=== PATIENT | male | born 1960 | race Caucasian/White ===

== ENCOUNTER 2021-11-09 06:19 | Emergency (ER) | payer BC ==
[~2021-11-09] VITALS: Ht 170.2 cm; Wt 72.7 kg
[2021-11-09 06:20] VITALS: BP_DIAS 69
[2021-11-09] MEDS ORDERED: MELO15TA28 PO (06:31)
[2021-11-09] MEDS ORDERED: TIZA4CAP PO (06:31)
[2021-11-09] MEDS ORDERED: MORPHINE 10 MG/ML 1ML VIAL IM ONE (07:20)
[2021-11-09] MEDS ORDERED: LIDOCAINE 5% (LIDODERM) PATCH TD ONE (07:20)
[2021-11-09] MEDS ORDERED: diazePAM 10 MG TAB PO ONE (07:20)
[2021-11-09] MEDS ORDERED: methylPREDNISolone 125MG 2ML VIAL IM ONE (08:55)
[2021-11-09] MEDS ORDERED: METH-1165 PO (09:00)
[2021-11-09] MEDS ORDERED: ASPE4PAD TOP (09:00)
[2021-11-09] MEDS ORDERED: TRAM50TA2 PO (09:00)
[2021-11-09] MEDS ORDERED: PRED20TA PO (09:00)
[2021-11-09 09:14] VITALS: BP_SYST 139
[2021-11-09] MEDS ORDERED: **NOTE PATIENT COMMENT** MISC XX ONE (21:00)
[2021-11-10] MEDS ORDERED: OXYC7.5T3 PO ×2 (22:20→22:28)
== END 2021-11-09 09:34 | disposition home or self-care (01) ==
LOC: M ED 06:19
DX: M51.27 Other intervertebral disc displacement, lumbosacral region (principal); M19.90 Unspecified osteoarthritis, unspecified site; Z87.442 Personal history of urinary calculi; Z88.1 Allergy status to other antibiotic agents; Z88.5 Allergy status to narcotic agent; F17.200 Nicotine dependence, unspecified, uncomplicated
CPT/HCPCS: 72131; 93971; 96372; 99283; J2270; J2930

== ENCOUNTER 2021-11-10 11:20 | Emergency (ER) | payer BC ==
[~2021-11-10] VITALS: Ht 170.2 cm; Wt 72.7 kg
[~2021-11-10 11:20] MED LIST: ASPE4PAD TOP; MELO15TA28 PO; METH-1165 PO; PRED20TA PO; TIZA4CAP PO; TRAM50TA2 PO
[2021-11-10] MEDS: HYDROMORPHONE HCL 0.5 MG/ 0.5 ML SYRINGE (J1170 PER 1) IV PRN ×2 (13:59→16:41)
[2021-11-10 14:09] LABS: BASO % 0.2 % (0.0-1.0); EOS % 0.1 % (0.0-3.0); HEMATOCRIT 45.8 % (42.0-52.0); HEMOGLOBIN 15.2 g/dl (13.5-17.5); LYMPH # 1.9 10^3/uL (1.5-5.0); LYMPH % 11.1 % (24.0-44.0); MEAN CORPUSCULAR HEMOGLOBIN 32.4 pg (27.0-33.0); MEAN CORPUSCULAR HGB CONC 33.2 g/dl (32.0-36.5); MEAN CORPUSCULAR VOLUME 97.7 fl (80.0-96.0); MONO # 1.2 10^3/uL (0.0-0.8); PLATELET COUNT, AUTOMATED 233 10^3/uL (150-450); RED BLOOD COUNT 4.69 10^6/uL (4.30-6.10); WHITE BLOOD COUNT 17.3 10^3/uL (4.0-10.0)
[2021-11-10 14:37] LABS: BLOOD UREA NITROGEN 12 MG/DL (7-18); CALCIUM LEVEL 8.8 MG/DL (8.5-10.1); CARBON DIOXIDE LEVEL 22 MEQ/L (21-32); CHLORIDE LEVEL 113 MEQ/L (98-107); CREATININE FOR GFR 0.61 MG/DL (0.70-1.30); GLOMERULAR FILTRATION RATE > 60.0 (>56); GLUCOSE, FASTING 94 MG/DL (70-100); POTASSIUM SERUM 4.3 MEQ/L (3.5-5.1); SODIUM LEVEL 142 MEQ/L (136-145)
[2021-11-10 14:42] LABS: ERYTHROCYTE SEDIMENTATION RATE 4 mm/hr (0-20)
[2021-11-10] MEDS ORDERED: HYDROMORPHONE HCL 0.5 MG/ 0.5 ML SYRINGE (J1170 PER 1) IV PRN (16:40)
[2021-11-10] MEDS ORDERED: PROHANCE 279.3MG/ML 15ML VIAL As Ordered ONE (19:08)
[2021-11-10] MEDS ORDERED: methylPREDNISolone 125MG 2ML VIAL IV ONE (21:30)
[2021-11-10] MEDS ORDERED: PERCOCET 5MG/325MG TAB PO ONE (22:05)
[2021-11-10] MEDS ORDERED: OXYCODONE/APAP 5MG/325MG(HOME DOSE PACK) PO ONE (22:20)
[2021-11-10] MEDS ORDERED: OXYC7.5T3 PO ×2 (22:20→22:28)
[2021-11-10 23:05] VITALS: BP 136/82
== END 2021-11-10 23:06 | disposition home or self-care (01) ==
LOC: M ED 11:20
DX: M51.26 Other intervertebral disc displacement, lumbar region (principal); M54.16 Radiculopathy, lumbar region; F17.200 Nicotine dependence, unspecified, uncomplicated; Z79.52 Long term (current) use of systemic steroids; Z79.899 Other long term (current) drug therapy; Z88.5 Allergy status to narcotic agent; Z88.1 Allergy status to other antibiotic agents; Z98.890 Other specified postprocedural states; Z87.39 Personal history of other diseases of the musculoskeletal system and connective tissue; Z87.442 Personal history of urinary calculi
CPT/HCPCS: 72158; 80048; 85025; 85652; 86140; 93041; 96374; 96375; 99284; A9576; J1170; J2930